=== PATIENT | male | born 1975 | race Hispanic/Latino ===

== ENCOUNTER → 2017-06-08 | Day surgery (SDC) | payer BC ==
[~2017-06-08] MED LIST: Lactated Ringers 1,000 ML IV SCH; Lactated Ringers 1,000 ML ONE; Ondansetron 4 MG/2 ML SDV IV ONE; Propofol 200 MG/20 ML SDV IV ONE
--- NOTE | 2017-06-08 12:41 | OR ---
DATE OF OPERATION: 06/08/2017 PREOPERATIVE DIAGNOSIS: HISTORY OF POLYPS, FAMILY HISTORY OF COLON CANCER. POSTOPERATIVE DIAGNOSIS: HISTORY OF POLYPS, FAMILY HISTORY OF COLON CANCER. SURGEON: Maurizio Rojo MD PROCEDURE: FULL-LENGTH COLONOSCOPY. 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 COMPLICATIONS: None. SPECIMEN: None. FINDINGS: Normal full-length colonoscopy. RECOMMENDATIONS: Followup colonoscopy every 5 years. INDICATIONS: The patient was in to see Dr. Ortega. Apparently he has a family history of colon cancer in his mother and he had a prior colonoscopy 4 years ago with a polyp removal. He is due for a followup. DESCRIPTION OF PROCEDURE: The patient was prepped and draped, placed in the left lateral decubitus position. A lubricated Olympus colonoscope was inserted and easily advanced to the cecum. Direct visualization of the ileocecal valve and appendiceal orifice was accomplished. Bowel prep was adequate. Upon withdrawal of the scope, throughout the entire length of the colon, I found no signs of any polyps, mass, ulceration, or bleeding sites. No vascular abnormalities or signs of colitis. There were no diverticula. The rectal vault was unremarkable. Retroflexion of scope in the rectum showed no anal lesions. Air was suctioned. Scope was removed without complications. CARMEN/KEEGAN /[id number]
== END ==
LOC: CC.SDS 08:58
PROVIDERS: ATTEND Family Medicine
DX: Z12.11 Encounter for screening for malignant neoplasm of colon (principal); I10 Essential (primary) hypertension; E78.5 Hyperlipidemia, unspecified; E55.9 Vitamin D deficiency, unspecified; E04.1 Nontoxic single thyroid nodule; N40.1 Benign prostatic hyperplasia with lower urinary tract symptoms; R35.1 Nocturia; Z86.010 Personal history of colon polyps; Z80.0 Family history of malignant neoplasm of digestive organs; Z79.899 Other long term (current) drug therapy; Z78.9 Other specified health status
CPT/HCPCS: 45378; J2405; J2704; J7120